=== PATIENT | male | born 1995 | race Caucasian/White ===

== ENCOUNTER 2023-09-01 07:19 | Emergency (ER) | payer OTHER, SELFPAY ==
[2023-09-01 07:24] VITALS: BP 151/108; PULSE 63; O2SAT 96
[2023-09-01 07:28] VITALS: BP 151/108; PULSE 72; RESP 20; TEMP 36.5; O2SAT 98
[2023-09-01 07:52] LABS: Add Manual Diff / Slide Review NO; Basophils Absolute Auto 0 /uL (0-100); Basophils Percent Auto 0.5 % (0-2); Eosinophils Absolute Auto 200 /uL (0-450); Eosinophils Percent Auto 2.9 % (2-4); Hematocrit 48.3 % (41-53); Hemoglobin 16.7 g/dL (13.5-17.5); Lymphocytes Absolute Auto 2200 /uL (1100-4500); Lymphocytes Percent Auto 33.6 % (25-40); Mean Corpuscular HGB Conc 34.5 % (30-36); Mean Corpuscular Hemoglobin 29.8 PG (26-34); Mean Corpuscular Volume 86.3 fL (80-100); Monocytes Absolute Auto 500 /uL (0-900); Monocytes Percent Auto 8.1 % (3-14); Neutrophils Absolute Auto 3600 /uL (1500-7000); Neutrophils Percent Auto 54.9 % (50-75); Platelet Count 273 X10^3/uL (150-400); Red Cell Distribution Width 12.5 % (11.6-14.8); White Blood Cell Count 6.5 X10^3/uL (4.5-11.0)
[2023-09-01 08:03] LABS: Alanine Aminotransferase 104 IU/L (<50); Albumin 4.6 g/dL (3.5-5.0); Albumin Globulin Ratio 1.2 (1.0-2.8); Alkaline Phosphatase 72 U/L (38-126); Aspartate Aminotransferase 44 IU/L (17-59); Bilirubin Total 0.9 mg/dL (0.2-1.3); Blood Urea Nitrogen 14 mg/dL (9-20); Calcium 9.5 mg/dL (8.4-10.2); Carbon Dioxide 28 mmol/L (22-32); Chloride 108 mmol/L (98-107); Estimated Glomerular Filt Rate > 60 mL/min (>60); Globulin 3.7 g/dL (1.7-4.1); Glucose 93 mg/dL (70-100); HEMOLYSIS < 15 (0-50); Lipase 60 U/L (23-300); Potassium 3.8 mmol/L (3.4-5.1); Sodium 142 mmol/L (137-145); Total Protein 8.3 g/dL (6.3-8.2)
--- NOTE | 2023-09-01 08:08 | ED.ABDPAIN ---
HPI - Abdominal Pain General Chief Complaint: Abdominal Pain Stated Complaint: r abd pain Time Seen by Provider: 09/01/23 08:07 Source: patient Mode of arrival: Ambulatory Limitations: no limitations History of Present Illness HPI narrative: This is a 27-year-old male with history of hypertension currently on taking any medication who presents with complaint of right side pain little bit of flank and right lower quadrant pain that came on fairly abruptly overnight. Patient states woke him up from sleep. No fevers or chills. He has had nausea but no vomiting. Noted his urine was dark, patient states no dysuria, urgency or frequency otherwise. Testicular pain. Patient denies any diarrhea or issues with bowel movements. He has not had a bowel movement today. Patient has not had similar pain in the past. Patient has not had any prior kidney stones that he is aware of. He denies any prior surgeries. No known drug allergies. No tobacco, no alcohol or recreational drugs. He defers anything for pain. Related Data Previous Rx's Medication Instructions Recorded levofloxacin 750 mg tablet 750 mg PO DAILY 7 days #7 tabs 09/01/23 tamsulosin 0.4 mg capsule (Flomax) 0.4 mg PO DAILY #7 caps 09/01/23 Review of Systems Review of Systems ROS Unobtainable: All systems reviewed & are unremarkable except as noted in HPI and below Patient History Social History Smoking Status: Former smoker Smoking Status: Former smoker alcohol intake frequency: holidays/special occasions only Substance Use Type: does not use Exam Narrative Exam Narrative: GENERAL: Alert and oriented x three, male in mild distress. HEENT: Head normocephalic, atraumatic, EOMI, pupils reactive, face symmetric, moist mucous membranes NECK: Supple, full range of motion CARDIOVASCULAR: Regular rate and rhythm without murmurs, rubs or gallops. RESPIRATORY: Breath sounds equal bilaterally, no wheezes rales or rhonchi. ABDOMEN: Soft, positive right lower quadrant pain. Normoactive bowel sounds all 4 quadrants. No guarding or rebound, rigidity, no mass : Mild Right CVA tenderness, no left CVA tenderness. EXTREMITIES: Normal range of motion, no clubbing or edema. Neurovascularly intact NEUROLOGICAL: Cranial nerves II through XII grossly intact. Moving all extremities SKIN: Warm, dry, no petechiae, no rashes or lesions. Initial Vital Signs Initial Vital Signs: Vital Signs Pulse Rate 63 09/01/23 07:24 Blood Pressure 151/108 H 09/01/23 07:24 Pulse Oximetry 96 09/01/23 07:24 Course Orders Ordered: ED Orders 09/01/23 07:30 Complete Blood Count AUTO DIFF Stat Comprehensive Metabolic Panel Stat Lipase Stat Urinalysis and Microscopic Stat Urine Culture Stat 09/01/23 07:55 Ammonia (NH3) Stat 09/01/23 08:21 CT abdomen pelvis w con Stat Discontinued Medications Levofloxacin (Levofloxacin 250 Mg Tablet) 750 mg PO NOW ONE Stop: 09/01/23 09:18 Last Admin: 09/01/23 09:28 Dose: 750 mg Documented By: TEODORA Vital Signs Vital signs: Vital Signs - 8 hr 09/01/23 07:24 09/01/23 07:24 09/01/23 07:28 Temperature 97.7 F Pulse Rate 63 72 Respiratory Rate 20 Blood Pressure 151/108 H 151/108 H Pulse Oximetry 96 98 Oxygen Delivery Method Room Air 09/01/23 08:13 09/01/23 08:14 09/01/23 08:14 Temperature Pulse Rate 60 61 Respiratory Rate Blood Pressure 138/102 H Pulse Oximetry 97 96 Oxygen Delivery Method 09/01/23 08:33 09/01/23 08:33 09/01/23 09:37 Temperature 98 F Pulse Rate 69 60 Respiratory Rate 20 Blood Pressure 147/99 H 135/89 Pulse Oximetry 97 100 Oxygen Delivery Method Room Air MDM - Abdominal Pain Lab Data 09/01/23 07:30 09/01/23 07:30 Labs: Lab Results 09/01/23 09/01/23 Range/Units 07:30 07:55 WBC 6.5 (4.5-11.0) X10^3/uL RBC 5.60 (4.5-5.9) X10^6/uL Hgb 16.7 (13.5-17.5) g/dL Hct 48.3 (41-53) % MCV 86.3 (80-100) fL MCH 29.8 (26-34) PG MCHC 34.5 (30-36) % RDW 12.5 (11.6-14.8) % Plt Count 273 (150-400) X10^3/uL Neut % (Auto) 54.9 (50-75) % Lymph % (Auto) 33.6 (25-40) % [place] % (Auto) 8.1 (3-14) % Eos % (Auto) 2.9 (2-4) % Baso % (Auto) 0.5 (0-2) % Neut # (Auto) 3600 (0960-8274) /uL Lymph # (Auto) 2200 (5514-1471) /uL [place] # (Auto) 500 (0-900) /uL Eos # (Auto) 200 (0-450) /uL Baso # (Auto) 0 (0-100) /uL Sodium 142 (137-145) mmol/L Potassium 3.8 (3.4-5.1) mmol/L Chloride 108 H (98-107) mmol/L Carbon Dioxide 28 (22-32) mmol/L BUN 14 (9-20) mg/dL Creatinine 1.08 (0.66-1.25) mg/dL Estimated GFR > 60 (>60) mL/min BUN/Creatinine Ratio 13.0 (6-22) Glucose 93 (70-100) mg/dL Calcium 9.5 (8.4-10.2) mg/dL Total Bilirubin 0.9 (0.2-1.3) mg/dL AST 44 (17-59) IU/L ALT 104 H (<50) IU/L Alkaline Phosphatase 72 (38-126) U/L Ammonia < 9 L (9-30) umol/L Total Protein 8.3 H (6.3-8.2) g/dL Albumin 4.6 (3.5-5.0) g/dL Globulin 3.7 (1.7-4.1) g/dL Albumin/Globulin Ratio 1.2 (1.0-2.8) Lipase 60 (23-300) U/L Urine Color Brown Urine Appearance Cloudy Urine pH 5.0 (4.5-8.0) Ur Specific [place] >=1.030 H (1.000-1.035) Urine Protein 2+ H (Negative) Urine Glucose (UA) Negative (Negative) g/dL Urine Ketones Negative (NEGATIVE) Urine Occult Blood 3+ H (Negative) Urine Nitrate Positive H (Negative) Urine Bilirubin Negative (NEGATIVE) Urine Urobilinogen 1.0 (0.2) E.U./dL Ur Leukocyte Esterase Negative (NEGATIVE) Urine RBC 30-100/hpf H (0-5/HPF) Urine WBC 1-5/hpf (0-5/HPF) Ur Squamous Epith Cells 0-1 /hpf (0-5/HPF) Urine Bacteria Few (2-10) H (None) Ur Culture Indicated? Specimen cultured Vol Urine Centrifuged 10ml (spun) MDM Narrative Medical decision making narrative: 19-year-old male with history of hypertension but otherwise healthy who presents with complaint of right side pain little bit into the flank and right lower quadrant he is tender on exam little bit of mild CVA tenderness. Pain was fairly abrupt on onset. Labs show white count of 6.5 hemoglobin is 16.7 with platelets of 273. Chemistry shows sodium of 142 potassium 3 8 chloride of 108 with a CO2 28, BUN 14 creatinine is 1.08, LFTs are negative except for an ALT of 104, negative ammonia. Lipase of 60. Specific gravity of 1.03, 2+ protein, 3+ blood with positive for nitrates, negative for leukocyte esterase. Microscopy shows WBCs, 1-5 WBCs 0-1 squamous few bacteria. Sent for culture. Possible kidney stone although patient is tender on examination in the right lower quadrant as well as right flank with nitrate positive urine could be pyelonephritis. Patient does still have his appendix so CT abdomen pelvis to evaluate for stone, pyelo versus appy. CT abdomen pelvis shows [id number] diffuse hepatic steatosis borderline hepatomegaly, liver is 19.6 cm, calcification right renal pelvis which could potentially represent 2 mm right UVJ stone not definite no right hydro right ureters mildly dilated extend to the vicinity of the calcification potentially within the UVJ. Normal appendix no significant colonic wall thickening. No aggressive osseous abnormality but severe disc height loss at L4-L5 and L5-S1 with bulges L3 through L5 and peripherally calcified disc protrusion L5-S1 with mild canal stenosis Patient does not appear septic has a appropriate labs, vitals and renal function. We will start on oral antibiotics, Flomax, continue with hydration and strict return precautions with referral to Urology. Patient is already aware of the changes to his liver, he is stopped drinking alcohol and following with primary care for this as well as his low back. Patient and I discussed need for follow-up, strict return precautions. Discharge Plan Departure Patient Disposition: Home Clinical Impression: Kidney stone on right side Activity Restrictions/Additional Instructions: Your imaging today does show some diffuse hepatic steatosis and enlargement of your liver, there are also degenerative changes in the lower lumbar spine with a peripherally calcified disc protruding at the L5-S1 region with canal stenosis. I would recommend follow-up with primary care regarding these changes. You do appear to have a kidney stone 2 mm at the right, it is close to the bladder unlikely to pass soon. Your urine also shows signs of infection. Infected stones can cause people to get very sick if you are worsening significantly please return to the emergency department. Take antibiotics until completed. Take Flomax once daily until gone. You may take Tylenol up to a 1000 mg every 6 hours and/or ibuprofen up to 600 mg every 6 hours as needed for pain. Prescription sent to [facility] in [place]. Please return for fevers, new or worsening abdominal back or flank pain, persistent vomiting, lightheadedness or passing out or other new or concerning changes. Prescriptions: New tamsulosin [Flomax] 0.4 mg capsule 0.4 mg PO DAILY Qty: 7 0RF levofloxacin 750 mg tablet 750 mg PO DAILY 7 Days Qty: 7 0RF Referrals: Colton Vargas MD [Physician] - Stand Alone Forms: Patient Portal/API, Work Release Note
[2023-09-01 08:12] LABS: Appearance Urine UA CLOUDY; Bilirubin Urine UA NEGATIVE (NEGATIVE); Color Urine UA BROWN; Glucose Urine UA NEGATIVE (Negative); Ketones Urine UA NEGATIVE (NEGATIVE); Leukocyte Esterase Urine UA NEGATIVE (NEGATIVE); Nitrite Urine UA POSITIVE (Negative); Occult Blood Urine UA 3+ (Negative); Protein Urine UA 2+ (Negative); Specific Gravity Urine UA >=1.030 (1.000-1.035)
[2023-09-01 08:13] VITALS: PULSE 60; O2SAT 97
[2023-09-01 08:14] VITALS: BP 138/102; PULSE 61; O2SAT 96
[2023-09-01 08:19] LABS: Ammonia (NH3) < 9 umol/L (9-30)
--- NOTE | 2023-09-01 08:21 | DI.CT.S_ITS ---
PROCEDURE: CT ABDOMEN PELVIS W CON INDICATIONS: right flank/RLQ pain w/ palp, +nitrate urine TECHNIQUE: After the administration of intravenous contrast, axial sections acquired from the lung bases to the pubic symphysis. Coronal and sagittal reformats were performed. For radiation dose reduction, the following was used: automated exposure control, adjustment of mA and/or kV according to patient size. COMPARISON: None. FINDINGS: Image quality: Diagnostic. Lower Chest: No significant findings. ABDOMEN: Liver: [id number] diffuse hepatic steatosis. Borderline hepatomegaly. Craniocaudal dimension of the liver is 19.6 cm. Gallbladder: No radiopaque gallstones or wall thickening. Biliary ducts: No biliary dilation. Pancreas: No ductal dilation. Spleen: Size is within normal limits. Adrenal Glands: No adrenal nodules. Kidneys and Ureters: There is a calcification in the right renal pelvis which may potentially represent a 2 mm right UVJ stone. This is not definite. There is no right hydronephrosis. The right ureter is mildly dilated, and extends to the vicinity of the calcification, potentially within the UVJ. Stomach and Bowel: Normal colonic caliber, without significant wall thickening. Normal appendix. Peritoneum: No abnormal intraperitoneal fluid. No free air. Ventral Wall: No significant ventral hernia. Abdominal Nodes: No retroperitoneal or mesenteric adenopathy by size criteria. Vessels: Aorta and inferior vena cava are normal in size. PELVIS: Pelvic Organs: Unremarkable. Bladder: No bladder wall thickening, accounting for underdistention. Pelvic Nodes: No enlarged lymph nodes. Miscellaneous: No inguinal hernias are seen. Bones: No aggressive osseous abnormality. Severe disc height loss at L4-L5 and L5-S1. Disc bulges at L3-L4 and L4-L5. Disc space loss at these levels. Peripherally calcified disc protrusion at L5-S1 with mild canal stenosis. IMPRESSION: 1. [id number] diffuse hepatic steatosis, borderline hepatomegaly. 2. Possible 2 mm right ureterovesical junction stone with mild prominence of the right ureter without hydronephrosis. Suggest clinical correlation. 3. Lumbar degenerative change greater than expected for patient age. Findings include a peripherally calcified disc protrusion at L5-S1 with canal stenosis. Dictated by: Matty Macario M.D. on 09/01/2023 at 8:48 Approved by: Matty Macario M.D. on 09/01/2023 at 8:58
[2023-09-01 08:24] LABS: Bacteria Urine Few (2-10); Culture Indicated Urine Specimen Cultured; RBC Urine 30-100/HPF (0-5/HPF); Squamous Epithelial Cell Urine 0-1 /HPF (0-5/HPF); Urine Volume 10mL (spun); WBC Urine 1-5/HPF (0-5/HPF)
[2023-09-01 08:33] VITALS: BP 147/99; PULSE 69; O2SAT 97
[2023-09-01] MEDS: levoFLOXacin 250 MG TABLET 750 MG PO (09:28)
[2023-09-01 09:37] VITALS: BP 135/89; PULSE 60; RESP 20; TEMP 36.6; O2SAT 100
== END 2023-09-01 09:39 | disposition home or self-care (01) ==
PROVIDERS: Emergency Provider Emergency Medicine
DX: N20.0 Calculus of kidney (principal)
CPT/HCPCS: 36415; 74177; 80053; 81001; 82140; 83690; 85025; 87086; 99283; 99284; Q9967

== ENCOUNTER 2023-09-04 08:06 | Emergency (ER) | payer OTHER, SELFPAY ==
[2023-09-04] VITALS (8 sets, daily range): BP systolic 138–168; BP diastolic 82–99; PULSE 61–74; RESP 18; TEMP 36.9; O2SAT 94–99; BMI 32.7
--- NOTE | 2023-09-04 08:40 | ED.ABDPAIN ---
HPI - Abdominal Pain General Chief Complaint: Abdominal Pain Stated Complaint: Kidney Stone Time Seen by Provider: 09/04/23 08:33 Source: patient Mode of arrival: EMS Limitations: no limitations History of Present Illness HPI narrative: 27-year-old male history of hypertension, hepatic steatosis and degenerative lumbar changes. Patient presents with complaint of right flank pain. He was seen here on the at that time was found to have likely kidney stone as well UTI and was treated with Flomax and antibiotics. Patient states pain had moved and had actually moved through the penile shaft he thought he had passed the stone and then had a new episode of right flank pain starting today. Has been taking the oral antibiotics that he was prescribed as well as Flomax. States has felt warm, had nausea and vomiting today when his pain was most intense. Describes pain in his right flank radiating towards the little frontal little bit. States his urine was dark this morning. States no diarrhea or constipation. Patient presents with EMS he received 100 mcg of fentanyl EN route. Patient states pain is currently controlled. Related Data Previous Rx's Medication Instructions Recorded levofloxacin 750 mg tablet 750 mg PO DAILY 7 days #7 tabs 09/01/23 tamsulosin 0.4 mg capsule (Flomax) 0.4 mg PO DAILY #7 caps 09/01/23 oxycodone 5 mg tablet 5 mg PO QID PRN pain #14 tabs 09/04/23 tamsulosin 0.4 mg capsule (Flomax) 0.4 mg PO BEDTIME #7 caps 09/04/23 Review of Systems Review of Systems ROS Unobtainable: All systems reviewed & are unremarkable except as noted in HPI and below Patient History Social History Smoking Status: Former smoker Smoking Status: Former smoker alcohol intake frequency: holidays/special occasions only Substance Use Type: does not use Exam Narrative Exam Narrative: GENERAL: Alert and oriented x three, male in mild distress. HEENT: Head normocephalic, atraumatic, EOMI, pupils reactive, face symmetric, moist mucous membranes NECK: Supple, full range of motion CARDIOVASCULAR: Regular rate and rhythm without murmurs, rubs or gallops. RESPIRATORY: Breath sounds equal bilaterally, no wheezes rales or rhonchi. ABDOMEN: Soft, mild right lower quadrant tenderness. Normoactive bowel sounds all 4 quadrants. No guarding or rebound, rigidity, no mass : Mild right CVA tenderness, no left CVA tenderness EXTREMITIES: Normal range of motion, no clubbing or edema. Neurovascularly intact NEUROLOGICAL: Cranial nerves II through XII grossly intact. Moving all extremities SKIN: Warm, dry, no petechiae, no rashes or lesions. Initial Vital Signs Initial Vital Signs: Vital Signs Temperature 98.5 F 09/04/23 08:05 Pulse Rate 61 09/04/23 08:05 Respiratory Rate 18 09/04/23 08:05 Blood Pressure 168/99 H 09/04/23 08:05 Pulse Oximetry 99 09/04/23 08:05 Oxygen Delivery Method Room Air 09/04/23 08:05 Course Orders Ordered: ED Orders 09/04/23 08:43 CT kidney ureter bladder (KUB) Stat 09/04/23 08:50 CBC Auto Diff [Complete Blood Count AUTO DIFF] Stat CMP [Comprehensive Metabolic Panel] Stat Lipase Stat 09/04/23 09:20 UA dip [Urinalysis Screen (Dip Only)] Stat Urine Microscopic Stat Discontinued Medications Sodium Chloride (Normal Saline 0.9%) 1,000 mls @ 1,000 mls/hr IV BOLUS ONE Stop: 09/04/23 10:10 Last Admin: 09/04/23 09:27 Dose: 1,000 mls/hr Documented By: TEODORA Ondansetron HCl (Ondansetron 4 Mg/2 Ml Inj) 4 mg IV Q6HR PRN PRN Reason: Nausea And Vomiting Vital Signs Vital signs: Vital Signs - 8 hr 09/04/23 08:05 09/04/23 08:10 09/04/23 08:10 Temperature 98.5 F Pulse Rate 61 68 Respiratory Rate 18 Blood Pressure 168/99 H 168/99 H Pulse Oximetry 99 98 Oxygen Delivery Method Room Air 09/04/23 08:30 09/04/23 08:30 09/04/23 08:53 Temperature Pulse Rate 72 68 Respiratory Rate Blood Pressure 148/91 H Pulse Oximetry 94 96 Oxygen Delivery Method 09/04/23 08:54 09/04/23 08:54 09/04/23 09:00 Temperature Pulse Rate 72 74 Respiratory Rate Blood Pressure 142/82 H Pulse Oximetry 96 94 Oxygen Delivery Method 09/04/23 09:00 09/04/23 09:30 09/04/23 10:00 Temperature Pulse Rate 65 66 Respiratory Rate Blood Pressure 138/83 Pulse Oximetry 96 97 Oxygen Delivery Method MDM - Abdominal Pain Lab Data 09/04/23 08:50 09/04/23 08:50 Labs: Lab Results 09/04/23 09/04/23 Range/Units 08:50 09:20 WBC 12.6 H (4.5-11.0) X10^3/uL RBC 5.18 (4.5-5.9) X10^6/uL Hgb 15.4 (13.5-17.5) g/dL Hct 44.7 (41-53) % MCV 86.3 (80-100) fL MCH 29.8 (26-34) PG MCHC 34.5 (30-36) % RDW 12.5 (11.6-14.8) % Plt Count 248 (150-400) X10^3/uL Neut % (Auto) 87.6 H (50-75) % Lymph % (Auto) 7.9 L (25-40) % [place] % (Auto) 4.0 (3-14) % Eos % (Auto) 0.3 L (2-4) % Baso % (Auto) 0.2 (0-2) % Neut # (Auto) 90376 H (8351-5059) /uL Lymph # (Auto) 1000 L (2572-7502) /uL [place] # (Auto) 500 (0-900) /uL Eos # (Auto) 0 (0-450) /uL Baso # (Auto) 0 (0-100) /uL Sodium 139 (137-145) mmol/L Potassium 3.8 (3.4-5.1) mmol/L Chloride 108 H (98-107) mmol/L Carbon Dioxide 26 (22-32) mmol/L BUN 12 (9-20) mg/dL Creatinine 1.21 (0.66-1.25) mg/dL Estimated GFR > 60 (>60) mL/min BUN/Creatinine Ratio 9.9 (6-22) Glucose 95 (70-100) mg/dL Calcium 9.2 (8.4-10.2) mg/dL Total Bilirubin 1.0 (0.2-1.3) mg/dL AST 43 (17-59) IU/L ALT 90 H (<50) IU/L Alkaline Phosphatase 64 (38-126) U/L Total Protein 7.8 (6.3-8.2) g/dL Albumin 4.4 (3.5-5.0) g/dL Globulin 3.4 (1.7-4.1) g/dL Albumin/Globulin Ratio 1.3 (1.0-2.8) Lipase 60 (23-300) U/L Urine Color Yellow Urine Appearance Clear Urine pH 6.5 (4.5-8.0) Ur Specific [place] >=1.030 H (1.000-1.035) Urine Protein Negative (Negative) Urine Glucose (UA) Negative (Negative) g/dL Urine Ketones 1+ H (NEGATIVE) Urine Occult Blood 3+ H (Negative) Urine Nitrate Negative (Negative) Urine Bilirubin Negative (NEGATIVE) Urine Urobilinogen 1.0 (0.2) E.U./dL Ur Leukocyte Esterase Negative (NEGATIVE) Urine RBC 30-100/hpf H (0-5/HPF) Urine WBC 0-1/hpf (0-5/HPF) Ur Squamous Epith Cells None seen (0-5/HPF) Urine Bacteria None seen (None) Ur Culture Indicated? Cult not indicated Vol Urine Centrifuged 10ml (spun) MDM Narrative Medical decision making narrative: 27-year-old male who represents with complaint of likely passing his 1st kidney stone but possibly a 2nd. His urine culture from the is negative for growth. Patient's prior CT patient had a likely right UVJ stone also had 1 in the kidney. Appears patient has likely passed 1 of the stones in the other 1 has moved down into the ureter. Patient labs are appropriate renal function is not elevated, urine does not show any signs of infection today in his culture was negative for growth. Plan to have patient continue with Flomax, pain medication follow up with Urology. Patient feels improved here in the department. Feels comfortable returning home with no vomiting, patient states pain controlled. [place] appropriate for discharge. Given additional rx of flomax if needed. Discharge Plan Departure Patient Disposition: Home Clinical Impression: Kidney stone on right side Activity Restrictions/Additional Instructions: You appear to have a new stone that has moved down from the kidney into the ureter on the right side. Continue with Flomax daily prescription for additional was sent. You may take Tylenol up to a 1000 mg and/or ibuprofen up to 600 mg every 6 hours. You may take 1-2 tablets of oxycodone every 6 hours as needed. This medication can make you sleepy do not drive, perform hazardous activities or make any major decisions while taking it. This medication will make you constipated please take a stool softener once to twice daily until stools are soft and regular. Prescription sent to [facility] in [place] Please return for fevers, new or worsening abdominal back or flank pain, persistent vomiting, lightheadedness or passing out or other new or concerning changes. Prescriptions: New oxycodone 5 mg tablet 5 mg PO QID PRN (Reason: pain) Qty: 14 0RF tamsulosin [Flomax] 0.4 mg capsule 0.4 mg PO BEDTIME Qty: 7 0RF No Action tamsulosin [Flomax] 0.4 mg capsule 0.4 mg PO DAILY Qty: 7 0RF levofloxacin 750 mg tablet 750 mg PO DAILY 7 Days Qty: 7 0RF Stand Alone Forms: Patient Portal/API
--- NOTE | 2023-09-04 08:43 | DI.CT.S_ITS ---
PROCEDURE: CT KIDNEY URETER BLADDER (KUB) INDICATIONS: R flank/abd pain, resolved then recurred TECHNIQUE: Axial sections were acquired from the lung bases to the pubic symphysis. Coronal and sagittal reformats were performed. For radiation dose reduction, the following was used: automated exposure control, adjustment of mA and/or kV according to patient size. COMPARISON: None. FINDINGS: Image quality: Diagnostic. Lower Chest: No significant findings. URINARY: Right Kidney: Mild hydronephrosis. Right Ureter: 2 millimeter obstructing stone in the right UVJ, resulting in moderate hydroureter. Left Kidney: Punctate nonobstructing nephrolithiasis. Left Ureter: No hydroureter. Bladder: Normal wall thickness. No stones. ABDOMEN: Liver: No contour-deforming solid mass. Hepatic steatosis. Gallbladder: No radiopaque gallstones or wall thickening. Biliary ducts: No biliary dilation. Pancreas: No ductal dilation. Spleen: Size is within normal limits. Adrenal Glands: No adrenal nodules. Stomach and Bowel: Normal colonic caliber, without significant wall thickening. Normal appendix. Colonic diverticulosis without evidence of diverticulitis. Peritoneum: No abnormal intraperitoneal fluid. No free air. Ventral Wall: No hernia. Abdominal Nodes: No enlarged retroperitoneal or mesenteric lymph nodes. Vessels: Aorta and inferior vena cava are normal in size. PELVIS: Pelvic Organs: Unremarkable. Pelvic Nodes: Unremarkable. Miscellaneous: No inguinal hernias are seen. Bones: Disc protrusion at L5-S1. IMPRESSION: Obstructing 2 millimeter stone in the right UVJ. This results in moderate hydronephrosis and hydroureter. Colonic diverticulosis without evidence of diverticulitis. Normal appendix. Dictated by: Demetrius Mancilla M.D. on 09/04/2023 at 9:00 Approved by: Demetrius Mancilla M.D. on 09/04/2023 at 9:15
[2023-09-04 09:09] LABS: Add Manual Diff / Slide Review NO; Basophils Absolute Auto 0 /uL (0-100); Basophils Percent Auto 0.2 % (0-2); Eosinophils Absolute Auto 0 /uL (0-450); Eosinophils Percent Auto 0.3 % (2-4); Hematocrit 44.7 % (41-53); Hemoglobin 15.4 g/dL (13.5-17.5); Lymphocytes Absolute Auto 1000 /uL (1100-4500); Lymphocytes Percent Auto 7.9 % (25-40); Mean Corpuscular HGB Conc 34.5 % (30-36); Mean Corpuscular Hemoglobin 29.8 PG (26-34); Mean Corpuscular Volume 86.3 fL (80-100); Monocytes Absolute Auto 500 /uL (0-900); Neutrophils Absolute Auto 11000 /uL (1500-7000); Neutrophils Percent Auto 87.6 % (50-75); Platelet Count 248 X10^3/uL (150-400); Red Blood Cell Count 5.18 X10^6/uL (4.5-5.9); Red Cell Distribution Width 12.5 % (11.6-14.8); White Blood Cell Count 12.6 X10^3/uL (4.5-11.0)
[2023-09-04 09:21] LABS: Alanine Aminotransferase 90 IU/L (<50); Albumin 4.4 g/dL (3.5-5.0); Albumin Globulin Ratio 1.3 (1.0-2.8); Alkaline Phosphatase 64 U/L (38-126); Aspartate Aminotransferase 43 IU/L (17-59); BUN Creatinine Ratio 9.9 (6-22); Blood Urea Nitrogen 12 mg/dL (9-20); Calcium 9.2 mg/dL (8.4-10.2); Carbon Dioxide 26 mmol/L (22-32); Chloride 108 mmol/L (98-107); Estimated Glomerular Filt Rate > 60 mL/min (>60); Globulin 3.4 g/dL (1.7-4.1); Glucose 95 mg/dL (70-100); HEMOLYSIS < 15 (0-50); Lipase 60 U/L (23-300); Potassium 3.8 mmol/L (3.4-5.1); Sodium 139 mmol/L (137-145); Total Protein 7.8 g/dL (6.3-8.2)
[2023-09-04] MEDS: SODIUM CHLORIDE 0.9% 1,000 ML 1000 ML IV (09:27)
[2023-09-04 09:31] LABS: Appearance Urine UA CLEAR; Bilirubin Urine UA NEGATIVE (NEGATIVE); Color Urine UA YELLOW; Glucose Urine UA NEGATIVE (Negative); Ketones Urine UA 1+ (NEGATIVE); Leukocyte Esterase Urine UA NEGATIVE (NEGATIVE); Nitrite Urine UA NEGATIVE (Negative); Occult Blood Urine UA 3+ (Negative); Protein Urine UA NEGATIVE (Negative); Specific Gravity Urine UA >=1.030 (1.000-1.035); pH Urine UA 6.5 (4.5-8.0)
[2023-09-04 09:37] LABS: Urine Volume 10mL (spun)
[2023-09-04 09:38] LABS: Bacteria Urine None Seen; Culture Indicated Urine Cult Not Indicated; RBC Urine 30-100/HPF (0-5/HPF); Squamous Epithelial Cell Urine None Seen (0-5/HPF); WBC Urine 0-1/HPF (0-5/HPF)
== END 2023-09-04 10:17 | disposition home or self-care (01) ==
PROVIDERS: Emergency Provider Emergency Medicine
DX: N20.0 Calculus of kidney (principal); Z87.442 Personal history of urinary calculi
CPT/HCPCS: 74176; 80053; 81003; 81015; 83690; 85025; 99283; 99284

== ENCOUNTER 2025-02-22 15:02 | Emergency (ER) | payer OTHER, SELFPAY ==
[2025-02-22 16:19] VITALS: BP 154/100; PULSE 65; RESP 17; TEMP 36.6; O2SAT 98; BMI 30.2
--- NOTE | 2025-02-22 16:24 | DI.RAD.S_ITS ---
PROCEDURE: XR FINGER RT MIN 2V INDICATIONS: injury,swelling TECHNIQUE: AP hand, 2 views of the right ring finger(s) acquired. COMPARISON: None. FINDINGS: Bones: Acute nondisplaced avulsion fracture of the volar plate of the ring finger middle phalangeal base. No suspicious bony lesions. Soft tissues: No suspicious soft tissue calcifications. Soft tissue swelling of the ring finger without radiopaque retained foreign body or gas foci. IMPRESSION: Acute nondisplaced avulsion fracture of the volar plate of the ring finger proximal interphalangeal joint at the middle phalangeal base. Dictated by: Jos Wilkerson M.D. on 02/22/2025 at 16:46 Approved by: Jos Wilkerson M.D. on 02/22/2025 at 16:47
--- NOTE | 2025-02-22 17:20 | PC.NURSE ---
Pt left at 1708. upon reviewing the xray, pt has a fracture of his finger. encouraged patient to return to the ER, reviewed results with patient. Pt states that he will be back tomorrow. I informed patient that he is welcome to return any time to the ER. Pt verbalized an understanding.
== END 2025-02-22 17:12 | disposition left against medical advice (07) ==
PROVIDERS: Emergency Provider Emergency Medicine
DX: S69.91XA Unspecified injury of right wrist, hand and finger(s), initial encounter (principal)
CPT/HCPCS: 73140; 99281

== ENCOUNTER 2025-02-23 08:05 | Emergency (ER) | payer OTHER, SELFPAY ==
[2025-02-23 08:11] VITALS: BP 160/103; PULSE 59; RESP 18; TEMP 36.4; O2SAT 99; BMI 30.2
--- NOTE | 2025-02-23 08:30 | ED.UPPEXIN ---
HPI - Extremity Injury (Upper) General Chief Complaint: Extremity Injury, Upper Stated Complaint: Fractured Right ring finger Time Seen by Provider: 02/23/25 08:28 Source: patient, RN notes reviewed and old records reviewed Mode of arrival: Ambulatory Limitations: no limitations History of Present Illness HPI narrative: 29-year-old male who represents left without being seen yesterday but had x-ray that showed fracture of the ring finger. Patient states about 2 months ago started having pain in his 4th digit on his right hand. Has had increased swelling that has not improved over time. Has pain but can flex it. Patient notes that he does participate in [employer] regularly and noticed increased pain after this. He denies numbness or tingling. Denies any other injuries. Has a remote history of a metacarpal fracture in his hand. Denies any other medical issues. No reported allergies to medications. Related Data Previous Rx's ?Medication ?Instructions ?Recorded tamsulosin 0.4 mg capsule (Flomax) 0.4 mg PO DAILY #7 caps 09/01/23 oxycodone 5 mg tablet 5 mg PO QID PRN pain #14 tabs 09/04/23 tamsulosin 0.4 mg capsule (Flomax) 0.4 mg PO BEDTIME #7 caps 09/04/23 Allergies Allergy/AdvReac Type Severity Reaction Status Date / Time No Known Drug Allergies Allergy Verified 02/23/25 08:11 Review of Systems Review of Systems ROS Unobtainable: All systems reviewed & are unremarkable except as noted in HPI and below Patient History alcohol intake frequency: holidays/special occasions only Exam Narrative Exam Narrative: GENERAL: Alert and oriented x three, male in mild distress HEENT: Head normocephalic, atraumatic, EOMI, pupils reactive, face symmetric, moist mucous membranes NECK: Supple, full range of motion CARDIOVASCULAR: Regular rate and rhythm without murmurs, rubs or gallops. RESPIRATORY: Breath sounds equal bilaterally, no wheezes rales or rhonchi. ABDOMEN: Soft, nontender. Normoactive bowel sounds all 4 quadrants. No guarding or rebound, rigidity, no mass : No CVA tenderness EXTREMITIES: Slightly decreased flexion of the 4th finger at the middle interphalangeal joint. Patient does have swelling of the 4th digit in comparison to the other fingers. Normal sensation. Has tenderness over the middle interphalangeal quite. No other bony tenderness. No other warmth erythema or other changes. Patient has cap refill less than 2 seconds in all 5 fingers., no clubbing or edema. Neurovascularly intact NEUROLOGICAL: Cranial nerves II through XII grossly intact. Moving all extremities SKIN: Warm, dry, no petechiae, no rashes or lesions. Initial Vital Signs Initial Vital Signs: Vital Signs Temperature 97.6 F 02/23/25 08:11 Pulse Rate 59 L 02/23/25 08:11 Respiratory Rate 18 02/23/25 08:11 Blood Pressure 160/103 H 02/23/25 08:11 Pulse Oximetry 99 02/23/25 08:11 Oxygen Delivery Method Room Air 02/23/25 08:11 Course Orders Ordered: ED Orders 02/23/25 08:44 Consult to [facility] Stat Vital Signs Vital signs: Vital Signs - 8 hr 02/23/25 08:11 02/23/25 08:57 Temperature 97.6 F 98 F Pulse Rate 59 L 71 Respiratory Rate 18 20 Blood Pressure 160/103 H 165/95 H Pulse Oximetry 99 100 Oxygen Delivery Method Room Air Room Air MDM - Extremity Injury (Upper) MDM Narrative Medical decision making narrative: Patient had right finger x-ray that showed acute nondisplaced avulsion fracture volar plate of the ring finger proximal interphalangeal joint of the middle phalangeal joint. 29-year-old male who has had pain for at least 2 months. Patient does not recall a specific injury but does practice 2 jets to. I x-ray does show a fracture. Patient placed in splint with plan for follow up with Orthopedic surgery as possibly prolonged period with fracture. We did discuss patient asked to keep splint in place even if participating in [employer]. Discharge Plan Departure Patient Disposition: Home Clinical Impression: Finger fracture, right Instructions: DI for Finger Fracture Activity Restrictions/Additional Instructions: Your imaging shows an avulsion fracture of the volar plate of your ring finger of the proximal interphalangeal joint at the middle phalangeal base. Follow up with orthopedic surgery to make sure this is healing appropriately. Contact is included below. Follow up in the next week. Continue to wear splint until cleared by physician. You do have to wear the splint if you participate in [employer] and need to avoid using that hand. Splint Care: Keep splint clean and dry. Elevated affected body part to decrease swelling. OK to use ice pack on the affected body part. Use for 15-20 minutes each time, for 5-6x per day. If you develop worsening pain, numbness, tingling, discoloration of the affected body part, loosen the splint by loosening the JORGE L wrap, and either see your doctor for an urgent re-assessment, or return to the Emergency Department. Return to the Emergency Department for any new or worsening symptoms. Prescriptions: No Action oxycodone 5 mg tablet 5 mg PO QID PRN (Reason: pain) Qty: 14 0RF tamsulosin [Flomax] 0.4 mg capsule 0.4 mg PO BEDTIME Qty: 7 0RF tamsulosin [Flomax] 0.4 mg capsule 0.4 mg PO DAILY Qty: 7 0RF Referrals: ProviderRachel [Primary Care Provider, Family Practice] Singh Burks MD [Physician, Orthopedic Surgery] Stand Alone Forms: Patient Portal/API
[2025-02-23 08:57] VITALS: BP 165/95; PULSE 71; RESP 20; TEMP 36.6; O2SAT 100
== END 2025-02-23 08:58 | disposition home or self-care (01) ==
PROVIDERS: Emergency Provider Emergency Medicine
DX: S62.614A Displaced fracture of proximal phalanx of right ring finger, initial encounter for closed fracture (principal); X58.XXXA Exposure to other specified factors, initial encounter; Y93.75 Activity, martial arts
CPT/HCPCS: 99281